=== PATIENT | male | born 1985 | race Caucasian/White ===

== ENCOUNTER 2020-01-15 18:08 | Emergency (ER) | payer BC ==
[2020-01-15] MEDS ORDERED: Bupivacaine HCl 0.5%/Epinephrine 1:200,000/PF 30 ml Vial ONE (19:00)
--- NOTE | 2020-01-15 19:12 | RAD ---
THREE VIEWS LEFT HAND: 01/15/20 COMPARISON: None. HISTORY: Hand pain after punching a tree. FINDINGS: three views of the left hand shows a fracture of the neck of the fourth metacarpal. Dorsal soft tissu e swelling is seen. No dislocation is present. IMPRESSION: Fourth metacarpal neck fracture. POS: [facility]
== END 2020-01-15 19:41 | disposition home or self-care (01) ==
LOC: MADERS 18:08
DX: S62.335A Displaced fracture of neck of fourth metacarpal bone, left hand, initial encounter for closed fracture (principal); W22.8XXA Striking against or struck by other objects, initial encounter
CPT/HCPCS: 29125